=== PATIENT | male | born 1950 | race Hispanic/Latino ===

== ENCOUNTER 2016-07-30 13:05 | Emergency (ER) | payer OTHER ==
[~2016-07-30] VITALS: Ht 172.7 cm; Wt 108.4 kg
[2016-07-30] MEDS ORDERED: ALLO100T22 PO (13:22)
[2016-07-30] MEDS ORDERED: DILTCAP70 PO (13:24)
[2016-07-30] MEDS ORDERED: FUROSEMIDE20 MG PO (13:25)
[2016-07-30] MEDS ORDERED: CARDURA4 MG PO (13:25)
[2016-07-30] MEDS ORDERED: MINOXIDIL2.5 MG OR (13:26)
[2016-07-30] MEDS ORDERED: HYDRALAZINE25 MG PO (13:26)
[2016-07-30] MEDS ORDERED: LISI20TA11 PO (13:26)
[2016-07-30] MEDS ORDERED: TERAZOSIN5 MG OR (13:28)
[2016-07-30] MEDS ORDERED: PRAVACHOL20 MG PO (13:28)
[2016-07-30 14:14] LABS: POTASSIUM 3.9 mmol/L (3.6-5.2)
[2016-07-30 14:34] LABS: PLATELET COUNT 82 K/uL (142-355)
== END 2016-07-30 15:45 | disposition home or self-care (01) ==
LOC: ED 13:05
DX: I48.91 Unspecified atrial fibrillation (principal); N18.9 Chronic kidney disease, unspecified
CPT/HCPCS: 36415; 80053; 81000; 84484; 85027; 93005; 99283